=== PATIENT | male | born 1975 | race Caucasian/White ===

== ENCOUNTER 2022-10-29 15:36 | Emergency (ER) | payer MEDICAID ==
[~2022-10-29] VITALS: Ht 175.3 cm; Wt 109.5 kg
[2022-10-29 15:54] VITALS: BP 100/56
--- NOTE | 2022-10-29 16:01 | NUR ---
PT AMB TO BED 5.
--- NOTE | 2022-10-29 16:35 | NUR ---
47YO MALE PT C/O R SHOULDER PAIN XTODAY. REPORTS MECH FALL FORWARD ONTO FACE AND SHOULDER +[id number]. PRESENTS WITH CLOSED LAC ON FORHEAD, NO ACTIVE BLEEDING. ARRIVED WITH ARM/ SHOULDER ELEVATED PER COMFORT, +NUMBING -LOSS OF SENSATION. SHOULDER TENDER TO TOUCH , W/O VISIBLE DEFORMITY. DENIES HEAD PAIN, N/V/D OR TAKING MEDICATION. PT AAOX4, HOB POSITIONED PER COMFORT. HX:DENIES NKA
[2022-10-29] MEDS: NACL 0.9% 1,000 ML IV ONE (17:14)
[2022-10-29] MEDS: ONDANSETRON 4 MG/2 ML VIAL IVP ONE (17:17)
[2022-10-29] MEDS: MORPHINE SULFATE 4 MG/ML SYR IVP ONE (17:21)
--- NOTE | 2022-10-29 19:20 | NUR ---
REPORT GIVEN TO JAY PAVON. TRANSFER OF CARE AT THIS TIME
[2022-10-29] MEDS ORDERED: PROPOFOL 200 MG/20 ML VIAL IV ONE (19:33)
[2022-10-29] MEDS: PROPOFOL 200 MG/20 ML VIAL IV ONE (19:55)
--- NOTE | 2022-10-29 19:55 | NUR ---
MODERATE SEDATION BEGUN FOR RIGHT SHOULDER DISLOCATION. PLEASE SEE CONSCIOUS SEDATION RECORD
--- NOTE | 2022-10-29 19:56 | NUR ---
Dr. Alvarado examining patient.
--- NOTE | 2022-10-29 20:04 | NUR ---
X-Ray at bedside.
--- NOTE | 2022-10-29 20:12 | NUR ---
ASSISTED IN CONCIOUS SEDATION OF PATIENT. SLING WAS PLACED.
[2022-10-29 20:40] VITALS: BP 148/69
--- NOTE | 2022-10-29 20:40 | NUR ---
Patient discharged with v/s stable. Written and verbal after care instructions given and explained. Patient verbalized understanding. Ambulatory with steady gait. All questions addressed prior to discharge. Advised to follow up with PMD.
== END 2022-10-29 20:40 | disposition home or self-care (01) ==
LOC: MED 15:36 → EDBD 15:36 → MED 20:40
DX: S43.004A Unspecified dislocation of right shoulder joint, initial encounter (principal); S00.81XA Abrasion of other part of head, initial encounter; W01.0XXA Fall on same level from slipping, tripping and stumbling without subsequent striking against object, initial encounter; Y93.02 Activity, running; Y92.512 Supermarket, store or market as the place of occurrence of the external cause; Y99.8 Other external cause status
CPT/HCPCS: 23650; 73030; 96361; 96374; 96375; 99152; 99285; J2270; J2405; J2704; Q0092